=== PATIENT | male | born 1955 | race American Indian/Alaskan Native ===

== ENCOUNTER 2016-08-10 17:11 | Emergency (ER) | payer MEDICARE ==
[2016-08-10] MEDS ORDERED: SUBLIMAZE IM ONE (17:51)
[2016-08-10] MEDS ORDERED: ZOFRAN IM ONE (17:51)
--- NOTE | 2016-08-10 17:59 | Emergency Department Report ---
HPI - General Chief Complaint: Fall Time Seen by Provider: 08/10/16 17:45 - HPI HPI: [place] [id number] The patient is a 61-year-old male presenting with a chief complaint of pain after fall. The patient states this morning he fell while trying to get into his wheelchair. The patient states he forgot to lock the wheelchair so when he sat down he fell landing on the ground and striking his head. Patient complains of pain in the left thigh and head. Patient denies loss of consciousness. The patient gives his pain a score of 9/10 Location: [see above] Duration: Constant since this morning Quality: Pain Severity: 9/10 Modifying factors: [see above] Context: [see above] Mode of transportation: [not driving] ED Past Medical Hx - Past Medical History Previous Medical History?: Yes Hx Hypertension: Yes Hx Psychiatric Treatment: Yes (bipolar) Hx COPD: Yes Additional medical history: anoxic brain injury. 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 denies: eye pain, eye discharge, vision change ENT: denies: ear pain, throat pain Respiratory: denies: cough, shortness of breath, wheezing Cardiovascular: denies: chest pain, palpitations Endocrine: no symptoms reported Gastrointestinal: denies: abdominal pain, nausea, diarrhea Genitourinary: denies: urgency, dysuria Musculoskeletal: myalgia Skin: denies: rash, lesions Neurological: headache. denies: weakness, paresthesias Psychiatric: denies: anxiety, depression Hematological/Lymphatic: denies: easy bleeding, easy bruising Physical Exam - Physical Exam Vital Signs: Vital Signs 08/10/16 17:17 Temperature 98.1 F Pulse Rate 90 Respiratory 18 Rate Blood Pressure 150/100 O2 Sat by Pulse 94 Oximetry Physical Exam: GENERAL: The patient is well-developed well-nourished male lying on stretcher not appearing to be in acute distress. [] HEENT: Normocephalic. Atraumatic. Extraocular motions are intact. Blind In the right eye NECK: Supple. Trachea midline CHEST/LUNGS: Clear to auscultation. There is no respiratory distress noted. HEART/CARDIOVASCULAR: Regular. There is no tachycardia. There is no gallop rub or murmur. ABDOMEN: Abdomen is soft, nontender. Patient has normal bowel sounds. There is no abdominal distention. SKIN: There is no rash. There is no edema. There is no diaphoresis. NEURO: The patient is awake, alert, and oriented. The patient is cooperative. The patient has no focal neurologic deficits. The patient has normal speech. Cranial nerves II through XII grossly intact (except for cranial nerve II on the right) MUSCULOSKELETAL: There is slight tenderness to the lateral mid thigh on the left. There is no deformity seen. There is no rotation noted. There is no pain with internal or external rotation. There is no pain of the left hip with axial loading. There is no evidence of acute injury. ED Course Vital Signs 08/10/16 17:17 Temperature 98.1 F Pulse Rate 90 Respiratory 18 Rate Blood Pressure 150/100 O2 Sat by Pulse 94 Oximetry ED Medical Decision Making - Radiology Data Radiology results: report reviewed (CT head, CT cervical spine), image reviewed (CT head, CT cervical spine, left hip x-ray, left femur x-ray) interpreted by me: Left hip x-ray-no acute fracture or dislocation Left femur x-ray-no acute fracture CT head (read by radiologist)-no acute findings CT cervical spine (read by radiologist)-no acute findings - Differential Diagnosis closed head injury, ICH, hip fracture Critical care attestation.: If time is entered above; I have spent that time in minutes in the direct care of this critically ill patient, excluding procedure time. ED Disposition Clinical Impression: Closed head injury, Contusion of left thigh Disposition: DISCHARGED TO HOME OR SELFCARE Is pt being admited?: No Does the pt Need Aspirin: No Condition: Stable Additional Instructions: Return to the emergency department immediately should you develop worsening symptoms, fever, inability to tolerate food or liquid or any other concerns. Prescriptions: traMADol [Ultram] 50 mg PO Q6HR PRN #14 tablet PRN Reason: Pain Referrals: PRIMARY CARE, [Primary Care Provider] - 3-5 Days YULIYA MARTÍNEZ MD [Staff Physician] - 3-5 Days (Dr. Martínez is an orthopedic surgeon. Please follow up with him for further evaluation) Time of Disposition: 19:50
--- NOTE | 2016-08-10 18:46 | Cat Scan Report ---
FINAL REPORT EXAM: CT HEAD/BRAIN WO CON HISTORY: pain after fall TECHNIQUE: Contiguous axial images of the head were obtained without the use of intravenous contrast. PRIORS: None. FINDINGS: The cerebral hemispheres are without focal lesions. There is no evidence of acute infarct or intracranial hemorrhage. There is no mass lesion or mass effect. There are no abnormal extra-axial fluid collections. The ventricles and sulci are prominent consistent with generalized loss of brain substance, appropriate for age. There is deep white matter lucency consistent with chronic microvascular ischemic disease. The visualized skull and orbits are unremarkable. The visualized paranasal sinuses are clear. IMPRESSION: 1. No evidence of acute infarct or intracranial hemorrhage. 2. White matter lucency consistent with chronic microvascular ischemic disease.
--- NOTE | 2016-08-10 18:50 | Cat Scan Report ---
FINAL REPORT EXAM: CT CERVICAL SPINE WO CON HISTORY: head injury from fall TECHNIQUE: Helical axial CT imaging of the cervical spine. Images are reconstructed in the sagittal and coronal planes. PRIORS: None. FINDINGS: The vertebral bodies are normal in height. There is no evidence of fracture or subluxation. There is multilevel degenerative disc and facet disease. There is mild atherosclerotic calcification in the carotid bulbs. The paraspinous soft tissues are unremarkable. IMPRESSION: No evidence of acute fracture or subluxation.
[2016-08-10 20:13] VITALS: BP 129/84
--- NOTE | 2016-08-11 07:35 | XRay Report ---
LEFT FEMUR: History: Left leg pain after fall. AP and lateral views of the femur demonstrate normal mineralization and contours for this patient's age. No destructive changes are noted and the adjacent soft tissues are normal. IMPRESSION: Normal left femur.
--- NOTE | 2016-08-11 08:34 | XRay Report ---
LEFT HIP, 2 VIEWS: HISTORY: Left hip pain after fall. FINDINGS: Mild osteoarthritic changes are identified at the left hip. No evidence for fracture, dislocation or osteonecrosis. The soft tissues are unremarkable. IMPRESSION: No acute process. Mild osteoarthritic changes.
== END 2016-08-10 20:29 | disposition home or self-care (01) ==
LOC: ED 17:11
DX: S70.12XA Contusion of left thigh, initial encounter (principal); I10 Essential (primary) hypertension; F31.9 Bipolar disorder, unspecified; J44.9 Chronic obstructive pulmonary disease, unspecified; F17.200 Nicotine dependence, unspecified, uncomplicated; W05.0XXA Fall from non-moving wheelchair, initial encounter; S09.90XA Unspecified injury of head, initial encounter; Y93.9 Activity, unspecified; Y92.9 Unspecified place or not applicable; Y99.9 Unspecified external cause status
CPT/HCPCS: 70450; 72125; 73502; 73552; 96372; 99284; J2405; J3010

== ENCOUNTER 2017-04-15 07:58 | Outpatient (CLI) | payer MEDICARE ==
[2017-04-15] MEDS ORDERED: XYLOCAINE TOPICAL 4% TP ONE (09:00)
== END 2017-04-15 07:59 | disposition home or self-care (01) ==
LOC: WOUND 07:58
PROVIDERS: ATTEND Surgery
DX: L97.122 Non-pressure chronic ulcer of left thigh with fat layer exposed (principal); I10 Essential (primary) hypertension; J44.9 Chronic obstructive pulmonary disease, unspecified; F33.9 Major depressive disorder, recurrent, unspecified; F17.200 Nicotine dependence, unspecified, uncomplicated
CPT/HCPCS: 99205; G0463

== ENCOUNTER 2017-04-22 08:51 | Outpatient (CLI) | payer MEDICARE ==
[2017-04-22] MEDS ORDERED: XYLOCAINE TOPICAL 4% TP ONE ×2 (09:17→09:23)
== END 2017-04-22 08:52 | disposition home or self-care (01) ==
LOC: WOUND 08:51
PROVIDERS: ATTEND Surgery
DX: L97.122 Non-pressure chronic ulcer of left thigh with fat layer exposed (principal); I10 Essential (primary) hypertension; J44.9 Chronic obstructive pulmonary disease, unspecified; F32.9 Major depressive disorder, single episode, unspecified; F29 Unspecified psychosis not due to a substance or known physiological condition; L40.9 Psoriasis, unspecified; F17.200 Nicotine dependence, unspecified, uncomplicated

== ENCOUNTER 2017-05-06 08:02 | Outpatient (CLI) | payer MEDICARE ==
[2017-05-06] MEDS ORDERED: XYLOCAINE TOPICAL 4% TP ONE ×2 (08:17→08:38)
== END 2017-05-06 08:03 | disposition home or self-care (01) ==
LOC: WOUND 08:02
PROVIDERS: ATTEND Surgery
DX: L97.122 Non-pressure chronic ulcer of left thigh with fat layer exposed (principal); S71.101D Unspecified open wound, right thigh, subsequent encounter; J44.9 Chronic obstructive pulmonary disease, unspecified; I10 Essential (primary) hypertension; F32.9 Major depressive disorder, single episode, unspecified; F17.200 Nicotine dependence, unspecified, uncomplicated; X58.XXXD Exposure to other specified factors, subsequent encounter
CPT/HCPCS: 99215; G0463

== ENCOUNTER 2017-05-13 10:39 | Outpatient (CLI) | payer MEDICARE | END 2017-05-13 10:40 | disposition home or self-care (01) | LOC: WOUND 10:39 | PROVIDERS: ATTEND Surgery | DX: L97.122 Non-pressure chronic ulcer of left thigh with fat layer exposed (principal); S71.101D Unspecified open wound, right thigh, subsequent encounter; I10 Essential (primary) hypertension; J44.9 Chronic obstructive pulmonary disease, unspecified; F33.9 Major depressive disorder, recurrent, unspecified; F17.200 Nicotine dependence, unspecified, uncomplicated; X58.XXXD Exposure to other specified factors, subsequent encounter | CPT/HCPCS: 99215; G0463 ==

== ENCOUNTER 2017-06-23 09:28 | Outpatient (CLI) | payer MEDICARE ==
--- NOTE | 2017-06-23 11:16 | Cat Scan Report ---
CT of the abdomen and pelvis without contrast. History: Microscopic hematuria, chronic kidney disease. Findings: The liver and spleen are normal. The pancreas is unremarkable. The multiple small gallstones. The wall the gallbladder is not thickened. There are small bilateral renal cysts, larger on the right with maximum diameter of a parapelvic cyst measuring 2 cm. A single subcentimeter right hypodensity in the lower pole of the kidney is noted. There are no pelvic masses or abnormal fluid collections. No mesenteric inflammation is seen. No ureteral stones or dilatation is seen. Impression: 1. Cholelithiasis. 2. Small bilateral renal cysts.
--- NOTE | 2017-06-23 14:53 | Nuclear Medicine Report ---
Nuclear medicine bone scan. History: Prostatic enlargement with urinary obstruction. Findings: The distribution of activity throughout the axial and appendicular skeleton is physiologic. Minimal increased activity is seen in the medial aspect of the right knee joint. Bilateral renal activity is present. Impression: No evidence of metastatic disease. DJD of the right knee.
== END 2017-06-23 09:29 | disposition home or self-care (01) ==
LOC: NM 09:28
PROVIDERS: ATTEND Urology
DX: I12.9 Hypertensive chronic kidney disease with stage 1 through stage 4 chronic kidney disease, or unspecified chronic kidney disease (principal); N18.3 Chronic kidney disease, stage 3 (moderate); R31.29 Other microscopic hematuria; N40.1 Benign prostatic hyperplasia with lower urinary tract symptoms; K80.20 Calculus of gallbladder without cholecystitis without obstruction; N28.1 Cyst of kidney, acquired; M17.11 Unilateral primary osteoarthritis, right knee; J44.9 Chronic obstructive pulmonary disease, unspecified; F17.200 Nicotine dependence, unspecified, uncomplicated
CPT/HCPCS: 74176; 78306; A9503